=== PATIENT | female | born 1940 | race Caucasian/White ===

== ENCOUNTER → 2017-08-09 | Outpatient (CLI) | payer OTHER ==
[~2017-08-09] MED LIST: ALPR0.25 PO; B COTAB3 PO; BUPR300T PO; CENTTAB9 PO; CHOL1CAP6 PO; OMEP20TA PO; OYST500T77 PO; TRAZ150T75 PO; VITA500T49 PO; [UNRECOGNIZED DRUG - OTHER] PO
--- NOTE | 2017-08-13 10:28 | RSPPFT ---
DATE OF PROCEDURE: 08/09/17 COMMENTS: VOLUMES DYNAMIC: FVC and FEV1 mildly reduced. STATIC: TLC low normal; FRC and RV normal. FLOWS: FEV1% normal; FEF 25-75 mildly reduced. DIFFUSION: Moderately reduced. FLOW VOLUME LOOP: Mild restrictive configuration with terminal airflow obstruction. IMPRESSION: Combined mild obstructive and mild restrictive defect with increased airways resistance. There is also a moderate reduction in diffusion possible related to prior smoking history. There is improvement post-bronchodilator.
== END ==
LOC: HRSP 10:59
PROVIDERS: ATTEND Internal Medicine
DX: J44.9 Chronic obstructive pulmonary disease, unspecified (principal)
CPT/HCPCS: 36600; 82805; 94060; 94618; 94726; 94729; 95012